=== PATIENT | male | born 1965 | race Two or more races ===

== ENCOUNTER 2022-02-14 04:06 | Inpatient (IN) | payer MEDICAID, OTHER ==
[~2022-02-14] VITALS: Ht 188 cm; Wt 90.7 kg
--- NOTE | 2022-02-14 04:22 | NUR ---
URINE AND COVID ANTIGEN SWAB COLLECTED AND SENT TO LAB
--- NOTE | 2022-02-14 04:25 | NUR ---
JUAN 839 C/O S/I WITH PLAN TO HANG HIMSELF. WANTS VOLUNTARY ADMIT TO PSYCH. BELONGINGS COLLECTED AND SAFETY MEASURES IN PLACE.
--- NOTE | 2022-02-14 04:34 | NUR ---
FINANCE ACCOUNTING INTERNSHIP AT PT'S BEDSIDE
[2022-02-14 04:52] LABS: BASOPHILS # (AUTO) 0.1 K/uL (0.0-0.2); BASOPHILS % (AUTO) 0.6 % (0.0-2.0); BILIRUBIN,URINE SMALL (NEGATIVE); EOSINOPHILS % (AUTO) 0.8 % (0.0-6.0); HEMATOCRIT 37 % (39-51); LEUKOCYTE ESTERASE ,URINE NEGATIVE (NEGATIVE); LYMPHOCYTES % (AUTO) 18.3 % (20.0-44.0); MEAN CORPUSCULAR HGB CONC 35 g/dl (31.0-36.0); MEAN CORPUSCULAR VOLUME 94 fL (80-96); MONOCYTES % (AUTO) 9.3 % (2.0-12.0); NITRITE, URINE NEGATIVE (NEGATIVE); PH,URINE 6.5 (5.0-8.0); PLATELET COUNT (AUTO) 104 K/uL (150-450); PROTEIN,URINE TRACE mg/dl (NEGATIVE); RED BLOOD CELL COUNT(AUTO) 3.98 MIL/uL (4.5-6.0); UGLUCOSE NEGATIVE (NEGATIVE); WHITE BLOOD COUNT (AUTO) 11.2 K/uL (4.3-11.0)
[2022-02-14 04:53] LABS: COLOR,URINE DARK YELLOW (YELLOW)
[2022-02-14 04:54] LABS: BACTERIA,URINE None seen /HPF (None Seen); SQUAMOUS EPITHELIAL CELL,UR None Seen /HPF (None Seen); WBC,URINE 0-2 /HPF (0-3)
[2022-02-14 05:00] LABS: CALCIUM, SERUM 8.4 mg/dL (8.5-10.1); CARBON DIOXIDE 26 mmol/L (21-32); CHLORIDE 102 mmol/L (98-107); CREATININE 1.2 mg/dL (0.6-1.3); GLUCOSE 111 mg/dL (74-106); POTASSIUM 3.8 mmol/L (3.5-5.1); SODIUM SERUM 142 mmol/L (136-145); UREA NITROGEN, BLOOD 16 mg/dL (7-18)
[2022-02-14 05:10] LABS: ALANINE AMINOTRANSFERASE 143 U/L (12-78); ALBUMIN 3.7 g/dL (3.4-5.0); ALCOHOL, BLOOD 352 mg/dL (0-0); ALKALINE PHOSPHATASE 134 U/L (46-116); ASPARTATE AMINOTRANSFERASE 269 U/L (15-37); BILIRUBIN,DIRECT 3.5 mg/dL (0.0-0.2); BILIRUBIN,TOTAL 6.2 mg/dL (0.2-1.0); TOTAL PROTEIN, SERUM 6.5 g/dL (6.4-8.2)
[2022-02-14 05:11] LABS: ACETAMINOPHEN < 2 ug/ml (10-30)
--- NOTE | 2022-02-14 05:34 | NUR ---
PT TAKEN TO RADIOLOGY VIA W/C
--- NOTE | 2022-02-14 05:55 | NUR ---
LAC #18G S/L; PATENT AND INTACT. BLOOD COLLECTED AND SENT TO LAB
--- NOTE | 2022-02-14 06:04 | NUR ---
US TECH AT PT'S BEDSIDE
[2022-02-14 06:43] LABS: LIPASE 235 U/L (73-393)
[2022-02-14 07:48] LABS: SERUM AMMONIA 72 umol/L (11-32)
--- NOTE | 2022-02-14 09:28 | NUR ---
PATIENT WANDED BY SECURITY
--- NOTE | 2022-02-14 12:03 | NUR ---
LUNCH TRAY PROVIDED. TOLERATED WELL
[2022-02-14] MEDS ORDERED: PANT40TA2 PO (16:11)
[2022-02-14] MEDS ORDERED: LACT10SO3 PO (16:11)
[2022-02-14] MEDS ORDERED: FLUO40CA8 PO (16:11)
[2022-02-14] MEDS ORDERED: MORPHINE SULFATE INJ 2 MG/ML DISP.SYRIN IV ONE (16:30)
[2022-02-14] MEDS ORDERED: LACTULOSE 10 G/15 ML UDC (PYXIS) GT ONE (16:30)
[2022-02-14] MEDS ORDERED: LORAZEPAM INJ 2 MG/ML VIAL IV ONE (16:30)
[2022-02-14] MEDS ORDERED: MORPHINE SULFATE INJ 2 MG/ML DISP.SYRIN ONE (17:16)
[2022-02-14] MEDS ORDERED: LACTULOSE 10 G/15 ML UDC (PYXIS) ONE (17:17)
[2022-02-14] MEDS ORDERED: LORAZEPAM INJ 2 MG/ML VIAL ONE (17:17)
[2022-02-14] MEDS ORDERED: LACTULOSE 10 G/15 ML UDC (PYXIS) PO ONE (17:30)
--- NOTE | 2022-02-14 18:18 | NUR ---
PER ADMITTING DEPT, GOT AUTHORIZATION TO STAY
--- NOTE | 2022-02-14 19:16 | NUR ---
[facility] CALLED MINERAL ENGINEER PAGED.
[2022-02-14] MEDS ORDERED: LORAZEPAM 1 MG TABLET PO ONE (20:00)
[2022-02-14] MEDS ORDERED: hydrALAZINE HCL IV 20 MG VIAL IV PRN (20:00)
[2022-02-14] MEDS ORDERED: ONDANSETRON HCL/PF 4 MG/2 ML VIAL IVP PRN (20:00)
[2022-02-14] MEDS ORDERED: ACETAMINOPHEN 325 MG TABLET PO PRN (20:00)
[2022-02-14] MEDS ORDERED: MORPHINE SULFATE INJ 2 MG/ML DISP.SYRIN IV PRN (20:00)
[2022-02-14] MEDS ORDERED: IV NS 0.9% 1,000 ML BAG IV ONE (20:30)
--- NOTE | 2022-02-14 20:48 | NUR ---
PT RESTING COMFORTABLY IN BED, DENIES ANY PAIN AT THIS TIME. WILL CONT TO MONITOR.
[2022-02-14] MEDS: RIFAXIMIN 550 MG TABLET PO SCH (21:00)
--- NOTE | 2022-02-14 23:04 | NUR ---
REPORT GIVEN TO CECILIA BELL RN FOR JOSE
--- NOTE | 2022-02-14 23:10 | NUR ---
PATIENT BEING TRANSFERRED UNDER ACLS
--- NOTE | 2022-02-14 23:20 | NUR ---
CRITICAL LAB : LACTIC ACID 3.2. MADE AWARE
[2022-02-14 23:28] LABS: ALBUMIN 2.9 g/dL (3.4-5.0); BILIRUBIN,TOTAL 5.1 mg/dL (0.2-1.0); CALCIUM, SERUM 8.1 mg/dL (8.5-10.1); POTASSIUM 3.6 mmol/L (3.5-5.1); TOTAL PROTEIN, SERUM 5.3 g/dL (6.4-8.2)
[2022-02-14 23:30] VITALS: BP 156/52
--- NOTE | 2022-02-14 23:46 | NUR ---
BURNER TENDER NOTE ADMITTED 56 YEARS OLD MALE PT FROM ER WITH THE DX OF ALCOHOL WITHDRAWAL. PT A/O X 4 NO SOB, NO DISTRESS OR DISCOMFORT NOTED. DENIES PAIN. SKIN ASSESSMENT DONE PICTURES TAKEN AND PLACE THEM IN THE CHART. ON TELE MONITOR ST HR 108. VSS SIDE RAILS UP AND CALL LIGHT WITHIN REACH. ADMITING ORDERS CHECKED AND CARRIED OUT. ALL NEEDS ATTENDED.
[2022-02-15] MEDS: PANTOPRAZOLE 40 MG VIAL IV SCH ×3 (00:35→21:37)
[2022-02-15] MEDS: LACTULOSE 10 G/15 ML UDC (PYXIS) PO SCH ×5 (00:35→21:37)
[2022-02-15] MEDS: ENOXAPARIN SODIUM 40 MG/0.4 ML DISP.SYRIN SQ SCH ×2 (00:35→21:00)
[2022-02-15] MEDS: IV NS 0.9% 1,000 ML IV SCH ×3 (00:36→21:16)
[2022-02-15] MEDS ORDERED: LORAZEPAM INJ 2 MG/ML VIAL ONE (00:39)
--- NOTE | 2022-02-15 00:48 | NUR ---
TUBE DEPATCHER NOTE PT FALL BACK TO DEEP SLEEP, NO DISTRESS NOTED.
[2022-02-15] MEDS ORDERED: PIPERACILLIN /TAZOBACTAM 3.375 G VIAL IV ONE ×2 (00:53→05:47)
[2022-02-15] MEDS ORDERED: RIFAXIMIN 550 MG TABLET ONE (00:56)
[2022-02-15] MEDS: CHLORDIAZEPOXIDE HCL 25 MG CAPSULE PO SCH ×4 (00:57→16:12)
[2022-02-15] MEDS: ZOSYN IVPB 3.375 G in IV D5W 50ml IV SCH ×4 (00:57→17:08)
[2022-02-15] MEDS: RIFAXIMIN 550 MG TABLET PO SCH ×3 (00:57→21:37)
[2022-02-15] MEDS ORDERED: LORAZEPAM INJ 2 MG/ML VIAL IV PRN (01:30)
--- NOTE | 2022-02-15 02:53 | NUR ---
ROUNDSMAN NOTE NOTED PT WITH TREMORS AND ANXIETY, ATIVAN 2 MG IVP GIVEN. CONTINUE TO MONITOR HIM.
--- NOTE | 2022-02-15 03:23 | NUR ---
MEDICAL DETAILIST NOTE ANXIETY AND TREMOR SUBSIDED. CONTINUE TO MONITOR. PT FALL ASLEEP AROUSABLE.
[2022-02-15 04:00] VITALS: BP 140/56
[2022-02-15 06:45] LABS: BASOPHILS % (AUTO) 0.3 % (0.0-2.0); EOSINOPHILS % (AUTO) 1.4 % (0.0-6.0); HEMATOCRIT 30 % (39-51); HEMOGLOBIN 10.4 g/dL (13.5-17.5); LYMPHOCYTES # (AUTO) 1.6 K/uL (0.8-4.8); LYMPHOCYTES % (AUTO) 24.3 % (20.0-44.0); MEAN CORPUSCULAR HGB CONC 34 g/dl (31.0-36.0); MEAN CORPUSCULAR VOLUME 96 fL (80-96); MONOCYTES # (AUTO) 0.7 K/uL (0.1-1.30); MONOCYTES % (AUTO) 10.7 % (2.0-12.0); NEUTROPHILS # (AUTO) 4.1 K/uL (1.8-8.9); NEUTROPHILS % (AUTO) 63.3 % (43.0-81.0); RED BLOOD CELL COUNT(AUTO) 3.16 MIL/uL (4.5-6.0); WHITE BLOOD COUNT (AUTO) 6.4 K/uL (4.3-11.0)
--- NOTE | 2022-02-15 06:57 | NUR ---
NEWS OPERATIONS MANAGER NOTE PT IN BED ASLEEP, NO DISTRESS NOTED. NO DISTRESS NOTED. ON TELE SR. IVF NS INFUSING AT 150 ML/HR. WOUND CONSULT TRIGGERED. ENDORSE TO ROSALINO ESCOBAR DAY SHIFT.
[2022-02-15 07:11] LABS: PLATELET COUNT (AUTO) 44 K/uL (150-450)
--- NOTE | 2022-02-15 07:32 | NUR ---
RN OPENING NOTE PT IS ASLEEP IN BED RESTING, PT A/O X 4 NO SOB, NO DISTRESS OR DISCOMFORT NOTED. DENIES PAIN. ON TELE MONITOR ST HR 108. IV ACCESS AT L AC 18G RUNNING NS AT 150 ML/HR. LAB REPORTED PLATELET LEVEL OF 44. ALL SAFETY MEASURES IN PLACE, BED IN LOWEST LOCKED POSITION, SIDE RAILS UP AND CALL LIGHT WITHIN REACH. WILL CONTINUE TO MONITOR THROUGHOUT SHIFT.
[2022-02-15 07:36] LABS: ALBUMIN 2.8 g/dL (3.4-5.0); BILIRUBIN,TOTAL 5.5 mg/dL (0.2-1.0); CREATININE 0.9 mg/dL (0.6-1.3); MAGNESIUM 1.6 mg/dL (1.8-2.4); PHOSPHORUS 3.5 mg/dL (2.5-4.9); POTASSIUM 3.4 mmol/L (3.5-5.1)
[2022-02-15 08:00] VITALS: BP 127/68
[2022-02-15 08:14] LABS: BAND % (MANUAL) 3 % (0.0-5.0); EOSINOPHILS % (MANUAL) 1 % (0-4); LYMPHOCYTES % (MANUAL) 30 % (16-48); MONOCYTES % (MANUAL) 7 % (0-11.0); NEUTROPHILS % (MANUAL) 59 (42-76)
[2022-02-15] MEDS: FLUOXETINE HCL 20 MG CAPSULE PO SCH (08:32)
--- NOTE | 2022-02-15 08:43 | NUR ---
WOUND CARE CONSULT: PT PRESENTS WITH AREAS OF SKIN DISCOLORATION AND SCRATCH MILLAN WELL SKIN TEAR TO RT ELBOW, PRESENT ON ADMISSION. RECOMMENDATIONS MADE FOR SKIN PROTECTION AND WOUND CARE. DISCUSSED WITH NURSING STAFF. MD IN AGREEMENT WITH PLAN OF CARE.
[2022-02-15 12:00] VITALS: BP 128/60
[2022-02-15] MEDS ORDERED: POTASSIUM CHLORIDE 20 MEQ TAB.PRT.SR PO SCH (12:00)
[2022-02-15] MEDS: Magnesium 1GM/D5W 100ML PREMIX 100 ML IV SCH ×2 (12:08→13:12)
[2022-02-15] MEDS ORDERED: IBUPROFEN 400 MG TABLET PO PRN (14:30)
[2022-02-15 16:00] VITALS: BP 124/65
--- NOTE | 2022-02-15 18:57 | NUR ---
RN CLOSING NOTE PT IS ASLEEP IN BED RESTING, PT A/O X 4 NO SOB, NO DISTRESS OR DISCOMFORT NOTED. DENIES PAIN. ON TELE MONITOR ST HR 80'S. IV ACCESS AT L AC 18G RUNNING NS AT 150 ML/HR. ALL SAFETY MEASURES IN PLACE, BED IN LOWEST LOCKED POSITION, SIDE RAILS UP AND CALL LIGHT WITHIN REACH. WILL ENDORSE TO SUPERVISOR CONCRETE STONE FINISHING NURSE FOR JOSE.
--- NOTE | 2022-02-15 19:51 | NUR ---
textile clothing and footwear mechanic Opening Note Pt received laying bed, A&O x4. Attached on monitor SR. No SOB, no resp distress. Has no report of pain, appears comfortable, sleeps intermittently. LAC IV is patent and intact, no signs of infiltration, NS 150 ml/hr. Bed in lowest position, call light within reach, side rails up x3. VSS. Right elbow dressing is intact and clean. Will continue to monitor .
[2022-02-15 20:00] VITALS: BP 134/66
--- NOTE | 2022-02-15 21:40 | NUR ---
CARD WRITER HAND NOTE BILLY HERRERA CORROSION CONTROL FITTER INFORMED REGARDING PLATELETS 44, CORROSION CONTROL FITTER GAVE NEW ORDER TO HOLD LOVENOX FOR TONIGHT. ORDER NOTED AND CARRIED OUT.
[2022-02-16] VITALS: BP 126/56
[2022-02-16] MEDS: ZOSYN IVPB 3.375 G in IV D5W 50ml IV SCH ×5 (00:15→23:18)
[2022-02-16 04:00] VITALS: BP 135/62
[2022-02-16] MEDS: IV NS 0.9% 1,000 ML IV SCH ×2 (05:27→15:17)
[2022-02-16 06:14] LABS: ALBUMIN 2.7 g/dL (3.4-5.0); BILIRUBIN,DIRECT 2.8 mg/dL (0.0-0.2); BILIRUBIN,TOTAL 5.2 mg/dL (0.2-1.0); CALCIUM, SERUM 7.7 mg/dL (8.5-10.1); CREATININE 0.9 mg/dL (0.6-1.3); MAGNESIUM 1.8 mg/dL (1.8-2.4); PHOSPHORUS 2.9 mg/dL (2.5-4.9); POTASSIUM 3.3 mmol/L (3.5-5.1); TOTAL PROTEIN, SERUM 4.9 g/dL (6.4-8.2)
--- NOTE | 2022-02-16 06:25 | NUR ---
furniture cleaner Closing Note Pt in bed awake, A&O x4. Attached to monitor, SR with HR in the 80s throughout the night. On NC 3L, no SOB or resp distress, O2sat in 90s. Bed in lowest position, side rails x3, call light within reach. Will endorse to dayshift nurse.
[2022-02-16 06:31] LABS: BASOPHILS % (AUTO) 0.4 % (0.0-2.0); EOSINOPHILS % (AUTO) 3.3 % (0.0-6.0); HEMATOCRIT 30 % (39-51); HEMOGLOBIN 10.1 g/dL (13.5-17.5); LYMPHOCYTES # (AUTO) 1.1 K/uL (0.8-4.8); LYMPHOCYTES % (AUTO) 20.7 % (20.0-44.0); MEAN CORPUSCULAR HGB CONC 34 g/dl (31.0-36.0); MEAN CORPUSCULAR VOLUME 97 fL (80-96); MONOCYTES # (AUTO) 0.5 K/uL (0.1-1.30); MONOCYTES % (AUTO) 10.2 % (2.0-12.0); NEUTROPHILS # (AUTO) 3.3 K/uL (1.8-8.9); NEUTROPHILS % (AUTO) 65.4 % (43.0-81.0); RED BLOOD CELL COUNT(AUTO) 3.06 MIL/uL (4.5-6.0); WHITE BLOOD COUNT (AUTO) 5.1 K/uL (4.3-11.0)
--- NOTE | 2022-02-16 07:12 | NUR ---
RN OPENING NOTE PT IS ASLEEP IN BED RESTING, PT A/O X 4 NO SOB, NO DISTRESS OR DISCOMFORT NOTED. DENIES PAIN. ON TELE MONITOR ST HR 80'S. IV ACCESS AT L AC 18G RUNNING NS AT 150 ML/HR. ALL SAFETY MEASURES IN PLACE, BED IN LOWEST LOCKED POSITION, SIDE RAILS UP AND CALL LIGHT WITHIN REACH. WILL CONTINUE TO MONITOR THROUGHOUT SHIFT.
[2022-02-16 07:43] LABS: PLATELET COUNT (AUTO) 32 K/uL (150-450)
[2022-02-16 08:00] VITALS: BP 137/65
[2022-02-16] MEDS: LACTULOSE 10 G/15 ML UDC (PYXIS) PO SCH ×4 (08:23→21:05)
[2022-02-16] MEDS: PANTOPRAZOLE 40 MG VIAL IV SCH ×2 (08:23→21:05)
[2022-02-16] MEDS: FLUOXETINE HCL 20 MG CAPSULE PO SCH (08:24)
[2022-02-16] MEDS: CHLORDIAZEPOXIDE HCL 25 MG CAPSULE PO SCH ×3 (08:24→16:29)
[2022-02-16] MEDS: RIFAXIMIN 550 MG TABLET PO SCH ×2 (08:25→21:05)
[2022-02-16] MEDS: Magnesium 1GM/D5W 100ML PREMIX 100 ML IV SCH ×2 (10:53→13:02)
--- NOTE | 2022-02-16 10:54 | NUR ---
"SS Note: Pt. Is a 56-year-old male who demonstrates adequate insight to the reason for hospitalization. Per pt., he was admitted to [facility] for liver failure. Pt. was oriented x3, alert, and cooperative. During interview, pt. was capable of following directions and appeared unkempt. Pt.s speech was at a normal rate and pt.s mood was elevated. Pt. reported no hx of mental health, denies suicidal ideation, or homicidal ideation. Pt. denies auditory hallucinations, visual hallucinations, paranoia, or delusions. SW explored pt.s living situation. Per pt., he is homeless. Pt. stated that prior to being hospitalized, pt. was at [facility] for 92 days [pt. was not able to provide address or directions of program]. Per pt., when he was discharged from [place], they did not provide him with medication. Pt. relapsed after 24 hours. Pt. stated that his sister [Lidia [phone]] and her Radha will not take him back. Pt.s dad Mamadou [[phone]] is supportive, per pt. Pt. expressed that he is open to a Sober Living upon discharge. SW provided pt. with a list of Sober Livings; pt. accepted. Plan: SW provided available resources and pt. accepted. Upon discharge, pt. is open to go to a Sober Living, SW provided pt. with a list of Sober Livings. Pt. was not able to sign homeless waiver at this time, SW placed waiver in chart. Resources Provided: Year-round shelters: [facility] [address] [place], [place] [phone] ; [facility] [address] [place] [address]; [facility] [id number] [facility] [address] Winter Shelters: Dk [place] Provider: [facility] [place] Address: [address] [place], [address] # of Beds: 47 Population Served: [facility] 6 | [facility] Jannet Pattersonhugaby Bras[place] Provider: [facility] Address: [address] [facility], [address] # of Beds: 66 Population Served: Mikaylad Caroline [place] Provider: [facility] Serve Address: [address] [facility], [address] # of Beds: 56 Population Served: Mikaylad Haile [place] Provider: [facility] Address: [address] [facility], [address] # of Beds: 49 Population Served: [facility] 8 | [facility] Provider: First to Serve Address: [address] [facility]. [place], [address] # of Beds: 37 Population Served: [facility] Hygiene: [facility]: [address] [address] [place] ; [facility] [address] [facility] ; [facility] [address] [place] . Food Resources: [place] [facility] at [facility]- [address] [facility]; Meet Each Need with Dignity ([facility]) [address] [facility]; [facility] Food Pantry [address] [facility]; [facility] [address] [facility]. Mental Health resources provided: [facility] [address] [place], [place] [id number] ; [facility] [address] [facility] [address], [place] [address] ; Evangelina Bland [facility] [address] [place] [address] ; [facility] [address] [place], [place] [phone] Healthcare Clinics: [facility] [address] [facility], [address] [place]. [place] ; [facility] [address] [facility] [address] [place] [address]; [facility] [place] [address] [facility] [phone]) [phone] Counseling--Outpatient [facility] [address] [place] [address] (Specializes in in-depth psychotherapy for emotional distress: anxiety, depression, interpersonal conflicts, life transitions, childhood abuse) [facility] [address] [place], [place] [phone] (Assist with solving problem marital difficulties, separation & divorce, aging parents, & grief, chronic & terminal illness) [facility] [address] [place] [address] (Deal with loss & grief, anxiety, marital difficulties) Homebound/Mental Health Services [address], [address] [place] [address] (Provide in-home mental services to people who are incapable of leaving their homes) [facility]eds of the Elderly Senior Service/Resource Center [address] [place] [address] [facility] [address] [place] [address] PSYCHIATRIC OUTPATIENT SERVICES [facility] Partial Hospitalization and Intensive Outpatient Program (Managed Care and [place] Only)[address] [facility] [phone] [facility] Partial Hospitalization and Outpatient [id number] [facility]. [address] [place], [place] [phone] [facility] Center [id number] [facility] [address] [place], [place] [phone] [facility] Partial Hospitalization and Outpatient Ovcalor[address] [place], [phone] Substance Abuse resources provided included: [facility] Substance Abuse Self-Helpline (SAS) ; [facility] [address] [facility]. [place] [phone] ; [facility] [place] [address] [facility] [address] ; [facility] [address] [place] [address] ; [facility] [address] [facility] [address] ; [facility] [address] [facility] [address] ; [facility] [address] [facility] [phone] ; [facility] Substance Abuse Helpline(SAS)[facility] ; [facility] ; [facility]; [facility]; [facility] [place]; [facility] [facility]; [place] [facility] [place]; [facility] [place]; [facility]; [facility] [place]; Alcoholics Anonymous -SFV; Tl-Jmtl-Mytuexw ; Marijuana Anonymous -SFV; Narcotics Anonymous www.na.org;"
[2022-02-16] MEDS ORDERED: POTASSIUM CHLORIDE 20 MEQ TAB.PRT.SR PO SCH (11:00)
[2022-02-16 12:00] VITALS: BP 146/62
[2022-02-16] MEDS ORDERED: Magnesium 1GM/D5W 100ML PREMIX PIGGYBACK IV ONE (12:00)
[2022-02-16 15:46] LABS: D-DIMER 2.18 mg/L(FEU (0.17-0.50)
[2022-02-16 16:00] VITALS: BP 131/56
[2022-02-16 16:14] LABS: THYROID STIMULATING HORMONE 1.032 uIU/mL (0.358-3.74)
--- NOTE | 2022-02-16 18:28 | NUR ---
RN CLOSING NOTE PT IS ASLEEP IN BED RESTING, PT A/O X 4 NO SOB, NO DISTRESS OR DISCOMFORT NOTED. ON TELE MONITOR ST HR 80'S. IV ACCESS AT L AC 18G RUNNING NS AT 150 ML/HR. ALL TREATMENTS PT TOLERATED WELL AND ORDERS CARRIED OUT. ALL SAFETY MEASURES IN PLACE, BED IN LOWEST LOCKED POSITION, SIDE RAILS UP AND CALL LIGHT WITHIN REACH. WILL ENDORSE TO DESIZING MACHINE OPERATOR HEAD END NURSE FOR JOSE.
--- NOTE | 2022-02-16 19:30 | NUR ---
RN opening notes Pt is laying in bed awake and watching TV comfortably. Pt is alert and orientedX4. On 3 L NC. No SOB. No S/S of distress noted. IV site at LAC# 18 is clean, intact and infuising well NS@ 150 ml/hr. Tele monitor showed SR hr at 77. Safety precautions is maintained. Bed at low position, brakes locked, side rails upX2, urinal at the bedside, call light is within reach. Will continue to monitor.
[2022-02-16 20:00] VITALS: BP 154/91
--- NOTE | 2022-02-16 20:39 | NUR ---
RN notes Charge nurse LUZ Ford informed that Pt's blood cx resulted gram positive cocci in clusters seen in gram stain. Informed and notified Dr. Boston about the result and also informed Pt on zosyn abx. ordered [facility] to dose. charge nurse is aware and informed. Ordered carry out.
--- NOTE | 2022-02-16 20:50 | NUR ---
RN notes CAlled and spoke with Pharmacist Rachelle regarding [facility] pharmacy to dose. Pharmacist will send the meds. Charge nurse is aware and informed.
[2022-02-16] MEDS ORDERED: VANCOMYCIN 1.25 GM in IV D5W 250 ML IV ONE (21:00)
--- NOTE | 2022-02-16 22:20 | NUR ---
RN notes Pt is complaining of pain on L abdomen and back and requesting pain meds. Pt stated my pain level is 100. Administered morphine 2 mg/iv push/prn as ordered. VS is stable. safety precautions is maintained. Will continue to monitor.
[2022-02-17] VITALS: BP 153/74
[2022-02-17 04:00] VITALS: BP 147/62
[2022-02-17] MEDS ORDERED: VANCOMYCIN 1 GM in IV D5W 250ml IV SCH (05:00)
[2022-02-17] MEDS: ZOSYN IVPB 3.375 G in IV D5W 50ml IV SCH ×3 (05:00→18:25)
[2022-02-17 05:53] LABS: SERUM AMMONIA 69 umol/L (11-32)
[2022-02-17 05:56] LABS: CREATINE KINASE, TOTAL 94 U/L (39-308)
[2022-02-17 05:58] LABS: ALBUMIN 2.6 g/dL (3.4-5.0); BILIRUBIN,DIRECT 2.4 mg/dL (0.0-0.2); BILIRUBIN,TOTAL 4.4 mg/dL (0.2-1.0); CALCIUM, SERUM 7.8 mg/dL (8.5-10.1); CREATININE 0.9 mg/dL (0.6-1.3); MAGNESIUM 1.7 mg/dL (1.8-2.4); PHOSPHORUS 3.4 mg/dL (2.5-4.9); POTASSIUM 3.5 mmol/L (3.5-5.1); TOTAL PROTEIN, SERUM 4.9 g/dL (6.4-8.2)
[2022-02-17 06:35] LABS: BASOPHILS % (AUTO) 0.3 % (0.0-2.0); HEMATOCRIT 30 % (39-51); HEMOGLOBIN 10.2 g/dL (13.5-17.5); LYMPHOCYTES # (AUTO) 1.2 K/uL (0.8-4.8); MEAN CORPUSCULAR HGB CONC 35 g/dl (31.0-36.0); MEAN CORPUSCULAR VOLUME 97 fL (80-96); MONOCYTES # (AUTO) 0.5 K/uL (0.1-1.30); MONOCYTES % (AUTO) 9.9 % (2.0-12.0); NEUTROPHILS # (AUTO) 3.4 K/uL (1.8-8.9); NEUTROPHILS % (AUTO) 63.8 % (43.0-81.0); RED BLOOD CELL COUNT(AUTO) 3.05 MIL/uL (4.5-6.0)
--- NOTE | 2022-02-17 06:39 | NUR ---
RN closing notes Pt is resting in bed comfortably. Pt is alert and orientedX4. On 3 L NC. No SOB. No S/S of distress noted. IV site at LAC# 18 is clean, and intact. Tele monitor showed SR hr at 83. Routine meds were given as ordered. Wound care provided. Kept Pt clean, dry and comfortable. All needs met and attended. Safety precautions is maintained. Bed at low position, brakes locked, side rails upX2, urinal at the bedside, call light is within reach. Will endorse to am nurse for JOSE.
[2022-02-17 07:07] LABS: IMMUNOGLOBULIN A, SERUM 204 mg/dL (90-386); IMMUNOGLOBULIN G, SERUM 605 mg/dL (603-1613); IMMUNOGLOBULIN M, SERUM 12 mg/dL (20-172)
[2022-02-17 08:00] VITALS: BP 146/60
[2022-02-17 08:04] LABS: PLATELET COUNT (AUTO) 28 K/uL (150-450)
[2022-02-17] MEDS: LACTULOSE 10 G/15 ML UDC (PYXIS) PO SCH ×4 (08:36→21:01)
[2022-02-17] MEDS: RIFAXIMIN 550 MG TABLET PO SCH ×2 (08:36→21:02)
[2022-02-17] MEDS: FLUOXETINE HCL 20 MG CAPSULE PO SCH (08:36)
[2022-02-17] MEDS: CHLORDIAZEPOXIDE HCL 25 MG CAPSULE PO SCH ×3 (08:37→17:26)
[2022-02-17] MEDS ORDERED: PANTOPRAZOLE 40 MG TABLET.DR PO SCH (09:00)
[2022-02-17 09:08] LABS: *ANA ANTI-CENTROMERE B AB <0.2 AI (0.0-0.9); *ANA ANTI-DNA(DS) AB, QN <1 IU/mL (0-9); *ANA ANTI-JO-1 <0.2 AI (0.0-0.9); *ANA ANTICHROMATIN ANTIBODY <0.2 AI (0.0-0.9); *ANA RNP ANTIBODIES <0.2 AI (0.0-0.9); *ANA SJOGREN'S ANTI-SS-A 0.3 AI (0.0-0.9); *ANA SJOGREN'S ANTI-SS-B <0.2 AI (0.0-0.9); *ANAANTI-SCLERODERMA-70 AB <0.2 AI (0.0-0.9); *ANASMITH AB <0.2 AI (0.0-0.9)
[2022-02-17] MEDS ORDERED: MAGNESIUM OXIDE 400 MG TABLET PO ONE (10:00)
[2022-02-17 10:29] LABS: WHITE BLOOD COUNT (AUTO) 5.3 K/uL (4.3-11.0)
[2022-02-17 12:00] VITALS: BP 141/54
[2022-02-17 12:07] LABS: *SPE A/G RATIO 1.6 (0.7-1.7); *SPE ALPHA-1-GLOBULIN 0.2 g/dL (0.0-0.4); *SPE ALPHA-2-GLOBULIN 0.4 g/dL (0.4-1.0); *SPE BETA GLOBULIN 0.7 g/dL (0.7-1.3); *SPE M-SPIKE Not Observed g/dL (Not Observed)
[2022-02-17] MEDS: SOD FERRIC GLUC 125 MG in IV NS 0.9% 100 ML IV SCH (14:07)
[2022-02-17 16:00] VITALS: BP 131/56
[2022-02-17] MEDS: VANCOMYCIN 1 GM in IV D5W 250ml IV SCH (16:41)
[2022-02-17] MEDS ORDERED: IV NS 0.9% 1,000 ML IV ONE (17:00)
--- NOTE | 2022-02-17 18:29 | NUR ---
RN NOTE Pt resting in bed, alert and orientedX4. On 3 L NC, PT not in respi distress. IV site at LAC# [address] and patent. Tele monitor showed SR hr at 85. Due meds given as ordered. Kept Pt clean, dry and comfortable. All needs attended. Safety precautions followed. Will endorse to next shift.
[2022-02-17 20:00] VITALS: BP 143/58
--- NOTE | 2022-02-17 20:00 | NUR ---
RN OPENING NOTE PT IS IN BED AWAKE , PT A/O X 4 NO SOB, NO DISTRESS OR DISCOMFORT NOTED. ON TELE MONITOR ST HR 80'S. IV ACCESS AT L AC 18G RUNNING NS AT 75ML/HR. LEFT HAND G20 INSERTED INTACT AND PATENT V/S STABLE AFEBRILE ALL TREATMENTS PT TOLERATED WELL AND ORDERS CARRIED OUT. ALL SAFETY MEASURES IN PLACE, BED IN LOWEST LOCKED POSITION, SIDE RAILS UP AND CALL LIGHT WITHIN REACH. WILL CONTINUE TO MONITOR PTS.
[2022-02-17] MEDS: FAMOTIDINE/PF INJ 20 MG/2 ML VIAL IV SCH (21:01)
[2022-02-18] VITALS: BP 142/54
[2022-02-18] MEDS: ZOSYN IVPB 3.375 G in IV D5W 50ml IV SCH ×4 (00:24→17:43)
[2022-02-18] MEDS: VANCOMYCIN 1 GM in IV D5W 250ml IV SCH ×3 (00:28→16:10)
[2022-02-18 04:00] VITALS: BP 140/55
[2022-02-18 06:49] LABS: ALBUMIN 2.5 g/dL (3.4-5.0); BILIRUBIN,TOTAL 3.5 mg/dL (0.2-1.0); CALCIUM, SERUM 8.1 mg/dL (8.5-10.1); CREATININE 0.9 mg/dL (0.6-1.3); MAGNESIUM 1.7 mg/dL (1.8-2.4); POTASSIUM 3.4 mmol/L (3.5-5.1); TOTAL PROTEIN, SERUM 4.9 g/dL (6.4-8.2)
--- NOTE | 2022-02-18 06:55 | NUR ---
POLICE SUPERINTENDENT NOTES REMAINS IN BED AWAKE ALERT AND RESPONSIVE , PTS ON ROOM AIR SATING 97% NO C/O OF PAIN AT THIS TIME , WILL ENDORSE TO RN DAY SHIFT FOR CONTINUITY OF CARE
--- NOTE | 2022-02-18 07:00 | NUR ---
RN OPENING NOTES PT IS IN BED AWAKE , PT A/O X 4 NO SOB, NO DISTRESS OR DISCOMFORT NOTED. ON TELE MONITOR SR 80'S. IV ACCESS AT L AC 18G RUNNING NS AT 75ML/HR. LEFT HAND G20 INTACT, PATENT, AND FLUSHING WELL. V/S STABLE. SAFETY MEASURES IN PLACE, BED IN LOWEST LOCKED POSITION, SIDE RAILS UP AND CALL LIGHT WITHIN REACH. WILL CONTINUE TO MONITOR.
[2022-02-18 07:04] LABS: BASOPHILS % (AUTO) 0.6 % (0.0-2.0); EOSINOPHILS % (AUTO) 2.8 % (0.0-6.0); HEMATOCRIT 30 % (39-51); HEMOGLOBIN 10.3 g/dL (13.5-17.5); LYMPHOCYTES % (AUTO) 22.6 % (20.0-44.0); MEAN CORPUSCULAR HGB CONC 35 g/dl (31.0-36.0); MEAN CORPUSCULAR VOLUME 97 fL (80-96); MONOCYTES # (AUTO) 0.4 K/uL (0.1-1.30); MONOCYTES % (AUTO) 9.3 % (2.0-12.0); NEUTROPHILS # (AUTO) 2.8 K/uL (1.8-8.9); NEUTROPHILS % (AUTO) 64.7 % (43.0-81.0); RED BLOOD CELL COUNT(AUTO) 3.07 MIL/uL (4.5-6.0); WHITE BLOOD COUNT (AUTO) 4.3 K/uL (4.3-11.0)
[2022-02-18 07:48] LABS: PLATELET COUNT (AUTO) 23 K/uL (150-450)
[2022-02-18 08:00] VITALS: BP 127/56
[2022-02-18 08:30] LABS: BAND % (MANUAL) 2 % (0.0-5.0); EOSINOPHILS % (MANUAL) 4 % (0-4); LYMPHOCYTES % (MANUAL) 21 % (16-48); MONOCYTES % (MANUAL) 9 % (0-11.0); NEUTROPHILS % (MANUAL) 64 (42-76)
[2022-02-18] MEDS: FLUOXETINE HCL 20 MG CAPSULE PO SCH (08:43)
[2022-02-18] MEDS: RIFAXIMIN 550 MG TABLET PO SCH ×2 (08:43→21:29)
[2022-02-18] MEDS: CHLORDIAZEPOXIDE HCL 25 MG CAPSULE PO SCH ×2 (08:43→16:30)
[2022-02-18] MEDS: LACTULOSE 10 G/15 ML UDC (PYXIS) PO SCH ×4 (08:44→21:29)
[2022-02-18] MEDS: FAMOTIDINE/PF INJ 20 MG/2 ML VIAL IV SCH ×2 (08:44→21:29)
--- NOTE | 2022-02-18 09:30 | NUR ---
[address] haddad notified that platelets 23 today and bruise on rt lower back , no new order given at this time
[2022-02-18] MEDS ORDERED: POTASSIUM CHLORIDE 20 MEQ TAB.PRT.SR PO SCH (10:00)
[2022-02-18] MEDS ORDERED: MAGNESIUM OXIDE 400 MG TABLET PO ONE (10:00)
--- NOTE | 2022-02-18 14:30 | NUR ---
telegraph repeater installer note transferred to room 328 bed 1 with stable condition , report given to tana coon
--- NOTE | 2022-02-18 14:31 | NUR ---
RN NOTES PATIENT TO UNIT AT ROOM 328, SITUATED AT BED 2. ATTACHED TO WASHING TUB OPERATOR.
[2022-02-18] MEDS: SOD FERRIC GLUC 125 MG in IV NS 0.9% 100 ML IV SCH ×2 (15:38→17:05)
--- NOTE | 2022-02-18 15:41 | NUR ---
RN NOTES PHLEB TECH AT BEDSIDE FOR BLOOD DRAW. SEEN BY CEDRIC ONCO I O PSYCHOLOGIST, AT BEDSIDE AND EXPLAINED PLAN OF CARE.
--- NOTE | 2022-02-18 16:48 | NUR ---
RN NOTES PATIENT ABLE TO AMBULATE W/ MIN ASSIST TO THE BATHROOM.
--- NOTE | 2022-02-18 19:01 | NUR ---
RN NOTES RESTING IN BED AT THIS TIME, NOT IN ACUTE DISTRESS. SR ON TELE, HR IN THE 70'S. SAFETY MEASURES MAINTAINED. WILL ENDORSE TO ASSISTANT TEACHING PROFESSOR RN FOR JOSE.
--- NOTE | 2022-02-18 19:30 | NUR ---
RN OPENING NOTE PATIENT IN BED, EYES CLOSED. EASILY AWAKENED WITH VERBAL AND TOUCH STIMULI. PATIENT IS A/O X 2-3 AT THIS TIME. PATIENT ON RA, BREATHING EVEN AND UNLABORED. SATTING 92%- PATIENT PUT ON 2 LPM 94-95%. PATIENT HAS A LAC 18 G PATENT AND INTACT. PATIENT DOES NOT REPORT ANY PAIN OR DISCOMFORT AT THIS TIME. PATIENT LOOKING FOR HIS CLOTHES- WILL LOOK FOR IT AT A LATER TIME. SAFETY MEASURES IN PLACE: BED LOCKED AND IN LOWEST POSITION, CALL LIGHT WITHIN REACH, SIDE RAILS UP. WILL MONITOR PATIENT CLOSELY.
[2022-02-18 20:00] VITALS: BP 138/64
[2022-02-19] VITALS: BP 136/59
[2022-02-19] MEDS: ZOSYN IVPB 3.375 G in IV D5W 50ml IV SCH ×5 (00:01→23:46)
[2022-02-19] MEDS: VANCOMYCIN 1 GM in IV D5W 250ml IV SCH ×3 (00:58→16:53)
[2022-02-19 06:51] LABS: BASOPHILS % (AUTO) 0.5 % (0.0-2.0); EOSINOPHILS % (AUTO) 1.8 % (0.0-6.0); HEMATOCRIT 32 % (39-51); HEMOGLOBIN 10.9 g/dL (13.5-17.5); LYMPHOCYTES % (AUTO) 20.8 % (20.0-44.0); MEAN CORPUSCULAR HGB CONC 35 g/dl (31.0-36.0); MEAN CORPUSCULAR VOLUME 97 fL (80-96); MONOCYTES # (AUTO) 0.5 K/uL (0.1-1.30); MONOCYTES % (AUTO) 10.6 % (2.0-12.0); NEUTROPHILS # (AUTO) 3.1 K/uL (1.8-8.9); NEUTROPHILS % (AUTO) 66.3 % (43.0-81.0); RED BLOOD CELL COUNT(AUTO) 3.25 MIL/uL (4.5-6.0); WHITE BLOOD COUNT (AUTO) 4.7 K/uL (4.3-11.0)
[2022-02-19 06:56] LABS: PLATELET COUNT (AUTO) 28 K/uL (150-450)
--- NOTE | 2022-02-19 07:01 | NUR ---
RN CLOSING NOTE PATIENT IN BED, AWAKE. PATIENT IS A/O X 3 AT THIS TIME. PATIENT ON 3LPM, SATTING 95%. PATIENT NEEDS REINFORCEMENT ON KEEPING O2 ON. PATIENT HAS A LAC 18 G PATENT AND INTACT. PATIENT DOES NOT REPORT ANY PAIN OR DISCOMFORT AT THIS TIME. TELE MONITOR READS SR 70S. PATIENT HAD AN EPISODE OF V TACH 8 BEATS. BILLY INSPECTOR INTEGRATED CIRCUITS NOTIFIED AND ORDERED STAT EKG. CLOTHES STILL MISSING, WILL CHECK IN DONATIONS. SAFETY MEASURES IN PLACE: BED LOCKED AND IN LOWEST POSITION, CALL LIGHT WITHIN REACH, SIDE RAILS UP. ALL NEEDS MET AND ATTENDED. ALL ORDERS CARRIED OUT. WILL ENDORSE TO DAY SHIFT NURSE FOR JOSE.
[2022-02-19 07:06] LABS: ALBUMIN 2.9 g/dL (3.4-5.0); BILIRUBIN,DIRECT 2.1 mg/dL (0.0-0.2); BILIRUBIN,TOTAL 3.6 mg/dL (0.2-1.0); CALCIUM, SERUM 8.3 mg/dL (8.5-10.1); CREATININE 0.9 mg/dL (0.6-1.3); MAGNESIUM 1.7 mg/dL (1.8-2.4); PHOSPHORUS 3.3 mg/dL (2.5-4.9); POTASSIUM 3.7 mmol/L (3.5-5.1); TOTAL PROTEIN, SERUM 5.5 g/dL (6.4-8.2)
--- NOTE | 2022-02-19 07:49 | NUR ---
RN OPENING NOTES Patient seen comfortably lying in bed, no shortness of breath,, no apparent distress noted, breathing even and unlabored, denies any pain or discomfort at this time. Call light left within reach, safety precautions in place, brakes locked, side rails up X 2, will monitor closely for any changes.
[2022-02-19 08:00] VITALS: BP 135/67
[2022-02-19] MEDS: FAMOTIDINE/PF INJ 20 MG/2 ML VIAL IV SCH (08:18)
[2022-02-19] MEDS: RIFAXIMIN 550 MG TABLET PO SCH ×2 (08:19→21:14)
[2022-02-19] MEDS: FLUOXETINE HCL 20 MG CAPSULE PO SCH (08:19)
[2022-02-19] MEDS: LACTULOSE 10 G/15 ML UDC (PYXIS) PO SCH ×4 (08:19→21:14)
[2022-02-19] MEDS ORDERED: CHLORDIAZEPOXIDE HCL 25 MG CAPSULE PO SCH (09:00)
[2022-02-19] MEDS: Magnesium 1GM/D5W 100ML PREMIX 100 ML IV SCH ×2 (09:29→10:31)
[2022-02-19 13:42] LABS: EOSINOPHILS % (MANUAL) 2 % (0-4); LYMPHOCYTES % (MANUAL) 19 % (16-48); MONOCYTES % (MANUAL) 7 % (0-11.0); NEUTROPHILS % (MANUAL) 72 (42-76)
[2022-02-19 13:51] VITALS: BP 129/58
[2022-02-19] MEDS: SOD FERRIC GLUC 125 MG in IV NS 0.9% 100 ML IV SCH (15:45)
[2022-02-19 16:00] VITALS: BP 138/62
--- NOTE | 2022-02-19 19:08 | NUR ---
RN CLOSING NOTES Patient lying in bed respirations even and unlabored, no shortness of breath, denies any pain or discomfort at this time, remained afebrile, no apparent distress noted, no dizziness, no palpitations, and no chest pain noted at this time. All medications given per MD order, tolerating well. Patient is on IV ATB and has IV peripheral lines on his left antecubital and left hand both patent, intact and flushing well, no s/s of infiltration at this time, no redness, no swelling noted. Patient preferred not to have wound care done, health teaching provided, explained risks and benefits thrice, still strongly refused, hospitalist made aware and acknowledged. All needs attended, kept clean and dry, safety precautions in place, brakes locked, side rails up X 2, call light left within reach, will endorse to next shift for continuity of care.
--- NOTE | 2022-02-19 19:35 | NUR ---
RN NOTES RECEIVED PATIENT SLEEPING BUT AROUSABLE, A/OX3, SR ON TELE MONITOR HR-88, DENIES PAIN, NO SOB, CALL LIGHT WITHIN REACH, SIDERAILSUPX2, WILL CONTINUE TO MONITOR
[2022-02-19 20:00] VITALS: BP 115/51
[2022-02-19] MEDS: FAMOTIDINE (20 MG) 20 MG TABLET PO SCH (21:14)
[2022-02-20] VITALS: BP 135/58
[2022-02-20] MEDS: VANCOMYCIN 1 GM in IV D5W 250ml IV SCH ×2 (00:43→08:12)
[2022-02-20 04:00] VITALS: BP_SYST 114; BP_DIAS 43; BP_DIAS 50
[2022-02-20] MEDS: ZOSYN IVPB 3.375 G in IV D5W 50ml IV SCH ×3 (05:56→17:18)
--- NOTE | 2022-02-20 06:27 | NUR ---
RN NOTES AWAKE, DENIES PAIN, NO SOB, MORNING CARE RENDERED, CALL LIGHT WITHIN REACH, SIDERAILSUPX2, PT. NEEDS ATTENDED
[2022-02-20 06:37] LABS: CALCIUM, SERUM 8.7 mg/dL (8.5-10.1); CREATININE 0.9 mg/dL (0.6-1.3); MAGNESIUM 1.9 mg/dL (1.8-2.4); PHOSPHORUS 3.9 mg/dL (2.5-4.9); POTASSIUM 3.9 mmol/L (3.5-5.1)
[2022-02-20 06:47] LABS: BASOPHILS % (AUTO) 0.7 % (0.0-2.0); EOSINOPHILS % (AUTO) 2.7 % (0.0-6.0); HEMATOCRIT 30 % (39-51); HEMOGLOBIN 10.4 g/dL (13.5-17.5); LYMPHOCYTES # (AUTO) 1.1 K/uL (0.8-4.8); LYMPHOCYTES % (AUTO) 28.8 % (20.0-44.0); MEAN CORPUSCULAR HGB CONC 35 g/dl (31.0-36.0); MEAN CORPUSCULAR VOLUME 97 fL (80-96); MONOCYTES # (AUTO) 0.6 K/uL (0.1-1.30); MONOCYTES % (AUTO) 15.3 % (2.0-12.0); NEUTROPHILS % (AUTO) 52.5 % (43.0-81.0); RED BLOOD CELL COUNT(AUTO) 3.08 MIL/uL (4.5-6.0); WHITE BLOOD COUNT (AUTO) 3.9 K/uL (4.3-11.0)
--- NOTE | 2022-02-20 07:45 | NUR ---
RN OPENING NOTES Patient seen comfortably lying in bed, no shortness of breath, no apparent distress noted, breathing even and unlabored, no grimacing, denies any pain or discomfort at this time. Call light left within reach, safety precautions in place, brakes locked, side rails up X 2, will monitor closely for any changes.
[2022-02-20] MEDS: FLUOXETINE HCL 20 MG CAPSULE PO SCH (08:10)
[2022-02-20] MEDS: RIFAXIMIN 550 MG TABLET PO SCH ×2 (08:10→20:59)
[2022-02-20] MEDS: FAMOTIDINE (20 MG) 20 MG TABLET PO SCH ×2 (08:10→21:08)
[2022-02-20 08:33] VITALS: BP 132/57
[2022-02-20 08:40] LABS: PLATELET COUNT (AUTO) 28 K/uL (150-450)
[2022-02-20] MEDS: LACTULOSE 10 G/15 ML UDC (PYXIS) PO SCH ×4 (10:57→21:04)
[2022-02-20 11:33] LABS: LYMPHOCYTES % (MANUAL) 31 % (16-48); MONOCYTES % (MANUAL) 9 % (0-11.0); NEUTROPHILS % (MANUAL) 60 (42-76)
[2022-02-20] MEDS: SOD FERRIC GLUC 125 MG in IV NS 0.9% 100 ML IV SCH (14:43)
[2022-02-20 16:32] VITALS: BP 130/63
--- NOTE | 2022-02-20 18:37 | NUR ---
RN CLOSING NOTES Patient lying in bed , no apparent distress noted, no dizziness, no palpitations, and no chest pain, breathing even and unlabored, no shortness of breath, denies any pain or discomfort at this time, remained afebrile. All medications given per MD order, tolerating well. Patient has an order for IV antibiotics, tolerated well. Patient has IV peripheral lines on his left antecubital and left hand, patent, intact and flushing well, no redness, no swelling noted, no s/s of infiltration at this time. Patient preferred not to have wound care done, health teaching provided, explained risks and benefits thrice, still strongly refused, hospitalist made aware and acknowledged. All needs attended, kept clean and dry, safety precautions in place, brakes locked, side rails up X 2, call light left within reach, will endorse to next shift for continuity of care.
--- NOTE | 2022-02-20 19:45 | NUR ---
CORPORATE SECRETARY NOTES SR-76 ON TELE MONITOR.RECEIVED ON BED A/O X2-3,WITH EPISODE OF CONFUSION.BREATHING EASY NO SOB,SALINE LOCK ON LEFT ARM X2 INTACT AND PATENT.AMBULATE WITH WALKER,DRESSING TO LEFT ELBOW SKIN TEAR INTACT AND DRY.FALL PRECAUTION OBSERVED,BED ON LOWEST POSITION AND LOCKED.CALL LIGHT IN REACH,NEEDS ANTICIPATED.
[2022-02-20 20:00] VITALS: BP 127/64
[2022-02-20] MEDS ORDERED: VANCOMYCIN 1 GM in IV D5W 250ml IV SCH (20:00)
[2022-02-21] VITALS: BP_SYST 122; BP_DIAS 122; BP_DIAS 55
[2022-02-21 04:00] VITALS: BP 109/47
[2022-02-21 05:00] VITALS: BP 109/47
--- NOTE | 2022-02-21 07:02 | NUR ---
BOBBIN STRIPPER NOTES SEEN BY ID LAST NIGHT,ALL IV ABX DISCONTINUED.AMBULATES WITH ASSIST,PATIENT VERBALIZED HE WANTS TO GO HOME TODAY.NO ALCOHOL WITHDRAWAL NOTED.,IN NO ACUTE DISTRESS.
[2022-02-21 07:08] LABS: BASOPHILS % (AUTO) 0.8 % (0.0-2.0); EOSINOPHILS % (AUTO) 2.1 % (0.0-6.0); HEMATOCRIT 31 % (39-51); HEMOGLOBIN 10.9 g/dL (13.5-17.5); LYMPHOCYTES % (AUTO) 26.3 % (20.0-44.0); MEAN CORPUSCULAR HGB CONC 35 g/dl (31.0-36.0); MEAN CORPUSCULAR VOLUME 98 fL (80-96); MONOCYTES # (AUTO) 0.6 K/uL (0.1-1.30); MONOCYTES % (AUTO) 14.6 % (2.0-12.0); NEUTROPHILS # (AUTO) 2.2 K/uL (1.8-8.9); NEUTROPHILS % (AUTO) 56.2 % (43.0-81.0); RED BLOOD CELL COUNT(AUTO) 3.21 MIL/uL (4.5-6.0); WHITE BLOOD COUNT (AUTO) 3.9 K/uL (4.3-11.0)
--- NOTE | 2022-02-21 07:30 | NUR ---
PT RECEIVED. RESTING COMFORTABLY IN BED. NO S/S OR C/O PAIN OR DISTRESS NOTED. SIDE RAILS UP X2, CALL LIGHT LEFT WITHIN REACH. WILL CONTINUE PLAN OF CARE.
[2022-02-21 07:34] LABS: PLATELET COUNT (AUTO) 36 K/uL (150-450)
[2022-02-21 07:37] LABS: CALCIUM, SERUM 8.3 mg/dL (8.5-10.1); CREATININE 0.9 mg/dL (0.6-1.3); MAGNESIUM 1.6 mg/dL (1.8-2.4); PHOSPHORUS 4.1 mg/dL (2.5-4.9); POTASSIUM 3.7 mmol/L (3.5-5.1)
[2022-02-21 08:35] VITALS: BP 120/48
[2022-02-21] MEDS: FLUOXETINE HCL 20 MG CAPSULE PO SCH (09:33)
[2022-02-21] MEDS: RIFAXIMIN 550 MG TABLET PO SCH (09:33)
[2022-02-21] MEDS: LACTULOSE 10 G/15 ML UDC (PYXIS) PO SCH ×2 (09:33→13:15)
[2022-02-21] MEDS: FAMOTIDINE (20 MG) 20 MG TABLET PO SCH (09:33)
[2022-02-21] MEDS: Magnesium 1GM/D5W 100ML PREMIX 100 ML IV SCH ×2 (11:00→12:00)
[2022-02-21] MEDS ORDERED: RIFA550T PO (11:14)
[2022-02-21] MEDS ORDERED: LACT10SO58 PO (11:14)
[2022-02-21 12:01] VITALS: BP 113/47
--- NOTE | 2022-02-21 13:45 | NUR ---
RN NOTES DISCHARGE PATIENT IN STABLE CONDITION. VITAL SIGNS IN NORMAL RANGES. NO PAIN NOTED. NO DISCOMFORT NOTED. ALL THE BELONGINGS ACCOUNTED AND SIGNED FOR. ALL NEEDS ATTENDED. DISCHARGE INSTRUCTIONS GIVEN TO THE PATIENT. PATIENT VERBALIZED UNDERSTANDING OF THE DISCHARGE INSTRUCTIONS. SARA WHEELED THE PATIENT TO THE LOBBY. PATIENT LEFT HOSPITAL IN STABLE CONDITION. CHARGE NURSE AND MD AWARE OF THE DISCHARGE.
--- NOTE | 2022-02-21 14:39 | NUR ---
SS consult requested for homelessness. SW will follow up at a later time.
--- NOTE | 2022-02-21 15:09 | NUR ---
SW attempted to meet with pt. however, he already departed.
== END 2022-02-21 13:45 | disposition home or self-care (01) | DRG 775 ==
LOC: ER 04:09 → TELE1 22:37 → TELE 02-18 14:40
PROVIDERS: ADMIT Internal Medicine; ATTEND Student in an Organized Health Care Education/Training Program
DX: F10.239 Alcohol dependence with withdrawal, unspecified (principal); F10.229 Alcohol dependence with intoxication, unspecified; D61.818 Other pancytopenia; E87.2 Acidosis; E44.0 Moderate protein-calorie malnutrition; E72.20 Disorder of urea cycle metabolism, unspecified; E88.09 Other disorders of plasma-protein metabolism, not elsewhere classified; M62.82 Rhabdomyolysis; K74.60 Unspecified cirrhosis of liver; Y90.8 Blood alcohol level of 240 mg/100 ml or more; K52.9 Noninfective gastroenteritis and colitis, unspecified; Z20.822 Contact with and (suspected) exposure to COVID-19; R45.851 Suicidal ideations; Z79.899 Other long term (current) drug therapy; D53.9 Nutritional anemia, unspecified; D69.59 Other secondary thrombocytopenia; E87.1 Hypo-osmolality and hyponatremia; Z91.19 Patient's noncompliance with other medical treatment and regimen; Z59.00 Homelessness unspecified; K40.90 Unilateral inguinal hernia, without obstruction or gangrene, not specified as recurrent; J43.2 Centrilobular emphysema; D50.9 Iron deficiency anemia, unspecified; R16.1 Splenomegaly, not elsewhere classified; R74.8 Abnormal levels of other serum enzymes
CPT/HCPCS: 36415; 76705-TC; 80048-TC; 80053-TC; 80076-TC; 80202-TC; 81001; 82105; 82140-TC; 82378; 82550-TC; 82553; 82607-TC; 82728-TC; 82784; 83540-TC; 83605-TC; 83690-TC; 83735-TC; 84100-TC; 84155; 84165; 84443-TC; 85025-TC; 85385-TC; 85396; 85610-TC; 85730-TC; 86225; 86235; 86334; 86431-TC; 86706; 86803; 87040-TC; 87081-TC; 87340; 97116-TC; 97530-TC; A4349; A6403; C9113; C9803; G0378; G0480; J1650; J2060; J2270; J2543; J2916; J3370; J3475; J3490; J7030; J7050; J7060